=== PATIENT | male | born 1960 | race Caucasian/White ===

== ENCOUNTER 2016-11-24 19:46 | Emergency (ER) | payer MEDICAID ==
[~2016-11-24] VITALS: Ht 167.6 cm; Wt 81.6 kg
[2016-11-24 19:54] VITALS: BP 148/77
[2016-11-24] MEDS: IBUPROFEN 800 MG TAB PO ONE (21:24)
[2016-11-24] MEDS: BACITRACIN OINT 500 UNITS/GM PKT TP ONE (21:24)
[2016-11-24 21:45] VITALS: BP 105/76
== END 2016-11-24 21:45 | disposition home or self-care (01) ==
LOC: MED 19:46
DX: S61.210A Laceration without foreign body of right index finger without damage to nail, initial encounter (principal); W22.09XA Striking against other stationary object, initial encounter; Y93.89 Activity, other specified; Y92.89 Other specified places as the place of occurrence of the external cause; Y99.8 Other external cause status
CPT/HCPCS: 73130; 99284